=== PATIENT | male | born 1935 | race Asian ===

== ENCOUNTER 2018-08-17 12:44 | Inpatient (IN) | payer OTHER, BC, MEDICARE ==
[2018-08-17 13:33] LABS: ADD MAN DIFF? NO
[2018-08-17 13:39] LABS: WHITE BLOOD COUNT 15.7 10^3/ul (4.8-10.8)
[2018-08-17 13:39] LABS: BASOPHILS % 0.1 % (0.0-2.0); EOSINOPHILS # 0.1 10^3/ul (0.0-0.5); EOSINOPHILS % 0.3 % (0.0-7.0); HEMATOCRIT 38.8 % (42.0-52.0); HEMOGLOBIN 12.1 g/dl (14.0-18.0); LYMPHOCYTES # 0.7 10^3/ul (0.8-2.9); LYMPHOCYTES % 4.3 % (15.0-51.0); MEAN CORPUSCULAR HEMOGLOBIN 27.9 pg (29.0-33.0); MEAN CORPUSCULAR HGB CONC 31.2 g/dl (32.0-37.0); MEAN CORPUSCULAR VOLUME 89.4 fl (82.0-101.0); MEAN PLATELET VOLUME 10.6 fl (7.4-10.4); MONOCYTE # 0.7 10^3/ul (0.3-0.9); MONOCYTES % 4.5 % (0.0-11.0); NEUTROPHIL # 14.1 10^3/ul (1.6-7.5); PLATELET COUNT 227 10^3/UL (140-415); RED BLOOD COUNT 4.34 10^6/ul (4.70-6.10); RED CELL DISTRIBUTION WIDTH 16.1 % (11.5-14.5)
[2018-08-17 13:59] LABS: ALANINE AMINOTRANSFERASE 8 IU/L (13-69); ALBUMIN 4.3 g/dl (3.3-4.9); ALBUMIN/GLOBULIN RATIO 1.07; ALKALINE PHOSPHATASE 82 IU/L (42-121); ANION GAP 8 (5-13); ASPARTATE AMINO TRANSFERASE 28 IU/L (15-46); BILIRUBIN,INDIRECT 0.4 mg/dl (0-1.1); BILIRUBIN,TOTAL 0.4 mg/dl (0.2-1.3); BLOOD UREA NITROGEN 58 mg/dl (7-20); CALCIUM 9.3 mg/dl (8.4-10.2); CARBON DIOXIDE 27 mmol/L (21-31); CHLORIDE 105 mmol/L (97-110); CREATININE 6.25 mg/dl (0.61-1.24); GLUCOSE 109 mg/dl (70-220); SODIUM 140 mmol/L (135-144); TOTAL PROTEIN 8.3 g/dl (6.1-8.1)
[2018-08-17 14:05] LABS: INR 0.95; PROTIME 12.8 Sec (11.9-14.9)
[2018-08-17] MEDS: SOD CHLORIDE 0.9% 500 ML IV (14:05)
[2018-08-17] MEDS: CEFEPIME 2GM/50 ML (PMX) 50 ML IVPB (14:05)
[2018-08-17 14:06] LABS: PARTIAL THROMBOPLASTIN TIME 29.7 Sec (23.0-35.0)
[2018-08-17 14:10] LABS: TROPONIN-I < 0.012 ng/ml (0.000-0.120)
[2018-08-17 14:46] LABS: ADD UMIC YES; UR ASCORBIC ACID NEGATIVE (NEGATIVE); UR BACTERIA FEW /HPF (NONE SEEN); UR BILIRUBIN (Dip) NEGATIVE (NEGATIVE); UR BLOOD (Dip) 1+ mg/dL (NEGATIVE); UR CLARITY CLOUDY (CLEAR); UR COLOR YELLOW (YELLOW); UR GLUCOSE (Dip) NEGATIVE (NEGATIVE); UR KETONES (Dip) NEGATIVE (NEGATIVE); UR LEUKOCYTE ESTERASE (Dip) 3+ Leu/ul (NEGATIVE); UR NITRITE (Dip) NEGATIVE (NEGATIVE); UR RBC 5 /HPF (0-5); UR TOTAL PROTEIN (Dip) 2+ mg/dl (NEGATIVE); UR UROBILINOGEN (Dip) NEGATIVE (NEGATIVE); UR WBC 125 /HPF (0-5)
[2018-08-17] MEDS: NA POLYST SULFON 15 GM/60 ML BTL PO (14:55)
[2018-08-17 15:02] LABS: POTASSIUM 5.3 mmol/L (3.5-5.1)
[2018-08-17] MEDS ORDERED: SODIUM CHLORIDE 0.9% 1L BAG IV (16:00)
[2018-08-17] MEDS ORDERED: ALBUMIN HUMAN 25% 100 ML IV (16:00)
[2018-08-17] MEDS: TAMSULOSIN (SR) 0.4 MG CAP PO (21:53)
[2018-08-17] MEDS: ATORVASTATIN 40 MG TAB PO (21:53)
[2018-08-17 23:10] LABS: LACTIC ACID 3.4 mmol/L (0.5-2.0)
[2018-08-18] MEDS: ACETAMINOPHEN 325 MG TAB PO (00:11)
[2018-08-18] MEDS: PANTOPRAZOLE (EC) 40 MG TAB PO ×2 (06:12→17:46)
[2018-08-18 07:03] LABS: ADD MAN DIFF? NO
[2018-08-18 07:13] LABS: WHITE BLOOD COUNT 17.6 10^3/ul (4.8-10.8)
[2018-08-18 07:13] LABS: BASOPHIL # 0.1 10^3/ul (0.0-0.1); BASOPHILS % 0.3 % (0.0-2.0); EOSINOPHILS # 0.2 10^3/ul (0.0-0.5); EOSINOPHILS % 0.9 % (0.0-7.0); HEMATOCRIT 34.4 % (42.0-52.0); HEMOGLOBIN 10.9 g/dl (14.0-18.0); LYMPHOCYTES # 1.9 10^3/ul (0.8-2.9); LYMPHOCYTES % 10.6 % (15.0-51.0); MEAN CORPUSCULAR HEMOGLOBIN 28.2 pg (29.0-33.0); MEAN CORPUSCULAR HGB CONC 31.7 g/dl (32.0-37.0); MEAN CORPUSCULAR VOLUME 89.1 fl (82.0-101.0); MEAN PLATELET VOLUME 11.1 fl (7.4-10.4); MONOCYTE # 1.3 10^3/ul (0.3-0.9); MONOCYTES % 7.2 % (0.0-11.0); NEUTROPHIL # 14.1 10^3/ul (1.6-7.5); NEUTROPHILS % 80.3 % (39.0-77.0); PLATELET COUNT 190 10^3/UL (140-415); RED BLOOD COUNT 3.86 10^6/ul (4.70-6.10); RED CELL DISTRIBUTION WIDTH 16.6 % (11.5-14.5)
[2018-08-18 07:40] LABS: ANION GAP 12 (5-13); BLOOD UREA NITROGEN 62 mg/dl (7-20); CALCIUM 8.8 mg/dl (8.4-10.2); CARBON DIOXIDE 21 mmol/L (21-31); CHLORIDE 109 mmol/L (97-110); CREATININE 6.95 mg/dl (0.61-1.24); GLUCOSE 91 mg/dl (70-220); POTASSIUM 4.3 mmol/L (3.5-5.1); SODIUM 142 mmol/L (135-144)
[2018-08-18] MEDS: AMLODIPINE 10 MG TAB PO (08:01)
[2018-08-18] MEDS ORDERED: CLOPIDOGREL 75 MG TAB PO (09:00)
[2018-08-18 09:54] LABS: HEPATITIS B SURFACE ANTIGEN NEGATIVE (NEGATIVE)
[2018-08-18 10:13] LABS: HEPATITIS B SURFACE ANTIBODY POSITIVE (NEGATIVE)
[2018-08-18 10:48] LABS: LACTIC ACID 0.7 mmol/L (0.5-2.0)
[2018-08-18] MEDS: HEPARIN 1000 UNITS/ML 10 ML INJ CATHETER (11:22)
[2018-08-18] MEDS: CEFEPIME 1GM/50 ML (PMX) 50 ML IVPB (13:34)
[2018-08-18] MEDS: ATORVASTATIN 40 MG TAB PO (20:20)
[2018-08-18] MEDS: TAMSULOSIN (SR) 0.4 MG CAP PO (20:20)
[2018-08-19] MEDS: PANTOPRAZOLE (EC) 40 MG TAB PO ×2 (05:05→17:13)
[2018-08-19 06:15] LABS: ADD MAN DIFF? NO
[2018-08-19 06:27] LABS: BASOPHILS % 0.3 % (0.0-2.0); EOSINOPHILS # 0.1 10^3/ul (0.0-0.5); EOSINOPHILS % 1.6 % (0.0-7.0); HEMOGLOBIN 11.3 g/dl (14.0-18.0); LYMPHOCYTES # 1.1 10^3/ul (0.8-2.9); LYMPHOCYTES % 12.4 % (15.0-51.0); MEAN CORPUSCULAR HEMOGLOBIN 28.3 pg (29.0-33.0); MEAN CORPUSCULAR HGB CONC 32.3 g/dl (32.0-37.0); MEAN CORPUSCULAR VOLUME 87.5 fl (82.0-101.0); MONOCYTE # 0.6 10^3/ul (0.3-0.9); MONOCYTES % 7.2 % (0.0-11.0); NEUTROPHILS % 78.2 % (39.0-77.0); PLATELET COUNT 202 10^3/UL (140-415); RED CELL DISTRIBUTION WIDTH 16.4 % (11.5-14.5)
[2018-08-19 06:27] LABS: WHITE BLOOD COUNT 8.9 10^3/ul (4.8-10.8)
[2018-08-19 07:18] LABS: LACTIC ACID 0.9 mmol/L (0.5-2.0)
[2018-08-19 08:07] LABS: IRON 22 ug/dl (35-150)
[2018-08-19 08:13] LABS: RETICULOCYTE COUNT # 0.058 X10^6 (0.020-0.110); RETICULOCYTE COUNT % 1.4 % (0.5-1.5)
[2018-08-19 08:17] LABS: % IRON SATURATION 14 % SAT (22-52); TOTAL IRON BINDING CAPACITY 152 ug/dl (241-421)
[2018-08-19] MEDS: AMLODIPINE 10 MG TAB PO (08:43)
[2018-08-19 09:14] LABS: FOLATE 5.4 ng/ml (2.8-20.0)
[2018-08-19] MEDS: CEFTRIAXONE 1 GM/50 ML (PMX) 50 ML IVPB (15:32)
[2018-08-19] MEDS: ATORVASTATIN 40 MG TAB PO (21:43)
[2018-08-19] MEDS: TAMSULOSIN (SR) 0.4 MG CAP PO (21:43)
[2018-08-20 05:39] LABS: ADD MAN DIFF? NO
[2018-08-20 05:49] LABS: BASOPHILS % 0.8 % (0.0-2.0); EOSINOPHILS # 0.3 10^3/ul (0.0-0.5); EOSINOPHILS % 5.4 % (0.0-7.0); HEMATOCRIT 34.4 % (42.0-52.0); HEMOGLOBIN 10.9 g/dl (14.0-18.0); LYMPHOCYTES # 1.3 10^3/ul (0.8-2.9); LYMPHOCYTES % 24.4 % (15.0-51.0); MEAN CORPUSCULAR HEMOGLOBIN 27.6 pg (29.0-33.0); MEAN CORPUSCULAR HGB CONC 31.7 g/dl (32.0-37.0); MEAN CORPUSCULAR VOLUME 87.1 fl (82.0-101.0); MEAN PLATELET VOLUME 10.7 fl (7.4-10.4); MONOCYTE # 0.7 10^3/ul (0.3-0.9); MONOCYTES % 12.8 % (0.0-11.0); NEUTROPHIL # 2.9 10^3/ul (1.6-7.5); NEUTROPHILS % 56.2 % (39.0-77.0); PLATELET COUNT 218 10^3/UL (140-415); RED BLOOD COUNT 3.95 10^6/ul (4.70-6.10); RED CELL DISTRIBUTION WIDTH 15.5 % (11.5-14.5)
[2018-08-20 05:49] LABS: WHITE BLOOD COUNT 5.2 10^3/ul (4.8-10.8)
[2018-08-20 06:05] LABS: ANION GAP 14 (5-13); BLOOD UREA NITROGEN 54 mg/dl (7-20); CALCIUM 8.9 mg/dl (8.4-10.2); CARBON DIOXIDE 24 mmol/L (21-31); CHLORIDE 101 mmol/L (97-110); CREATININE 6.78 mg/dl (0.61-1.24); GLUCOSE 95 mg/dl (70-220); POTASSIUM 3.6 mmol/L (3.5-5.1); SODIUM 139 mmol/L (135-144)
[2018-08-20] MEDS: PANTOPRAZOLE (EC) 40 MG TAB PO ×2 (06:07→18:05)
[2018-08-20] MEDS: AMLODIPINE 10 MG TAB PO (09:00)
[2018-08-20] MEDS: CEFTRIAXONE 1 GM/50 ML (PMX) 50 ML IVPB (13:18)
[2018-08-20] MEDS: HEPARIN 1000 UNITS/ML 10 ML INJ CATHETER (18:55)
[2018-08-20] MEDS: DOCUSATE SODIUM 100 MG CAP PO (21:31)
[2018-08-20] MEDS: ATORVASTATIN 40 MG TAB PO (21:31)
[2018-08-20] MEDS: TAMSULOSIN (SR) 0.4 MG CAP PO (21:31)
[2018-08-21] MEDS: PANTOPRAZOLE (EC) 40 MG TAB PO ×2 (06:09→17:47)
[2018-08-21] MEDS: DOCUSATE SODIUM 100 MG CAP PO ×2 (08:05→20:36)
[2018-08-21] MEDS: AMLODIPINE 10 MG TAB PO (08:05)
[2018-08-21 11:38] LABS: ANION GAP 13 (5-13); BLOOD UREA NITROGEN 39 mg/dl (7-20); CALCIUM 9.1 mg/dl (8.4-10.2); CARBON DIOXIDE 26 mmol/L (21-31); CHLORIDE 102 mmol/L (97-110); CREATININE 5.95 mg/dl (0.61-1.24); GLUCOSE 100 mg/dl (70-220); MAGNESIUM 2.3 mg/dl (1.7-2.5); POTASSIUM 4.4 mmol/L (3.5-5.1); SODIUM 141 mmol/L (135-144)
[2018-08-21 13:36] LABS: OCCULT BLOOD STOOL NEGATIVE (NEGATIVE)
[2018-08-21] MEDS: CEFTRIAXONE 1 GM/50 ML (PMX) 50 ML IVPB (13:44)
[2018-08-21 17:59] LABS: TROPONIN-I < 0.012 ng/ml (0.000-0.120)
[2018-08-21] MEDS: TAMSULOSIN (SR) 0.4 MG CAP PO (20:36)
[2018-08-21] MEDS: ATORVASTATIN 40 MG TAB PO (20:36)
[2018-08-22 01:59] LABS: TROPONIN-I < 0.012 ng/ml (0.000-0.120)
[2018-08-22] MEDS: PANTOPRAZOLE (EC) 40 MG TAB PO (05:55)
[2018-08-22 06:27] LABS: ADD MAN DIFF? NO
[2018-08-22 06:32] LABS: WHITE BLOOD COUNT 5.9 10^3/ul (4.8-10.8)
[2018-08-22 06:32] LABS: BASOPHIL # 0.1 10^3/ul (0.0-0.1); EOSINOPHILS # 0.4 10^3/ul (0.0-0.5); EOSINOPHILS % 5.9 % (0.0-7.0); HEMATOCRIT 35.5 % (42.0-52.0); HEMOGLOBIN 11.1 g/dl (14.0-18.0); LYMPHOCYTES # 1.9 10^3/ul (0.8-2.9); LYMPHOCYTES % 31.9 % (15.0-51.0); MEAN CORPUSCULAR HEMOGLOBIN 27.5 pg (29.0-33.0); MEAN CORPUSCULAR HGB CONC 31.3 g/dl (32.0-37.0); MEAN CORPUSCULAR VOLUME 87.9 fl (82.0-101.0); MEAN PLATELET VOLUME 10.3 fl (7.4-10.4); MONOCYTE # 0.5 10^3/ul (0.3-0.9); MONOCYTES % 8.7 % (0.0-11.0); NEUTROPHILS % 51.3 % (39.0-77.0); PLATELET COUNT 253 10^3/UL (140-415); RED BLOOD COUNT 4.04 10^6/ul (4.70-6.10); RED CELL DISTRIBUTION WIDTH 15.5 % (11.5-14.5)
[2018-08-22 06:51] LABS: CHOL/HDL RATIO 3.1 RATIO; HDL CHOLESTEROL 38 mg/dl (31-75); LDL CHOLESTEROL,CALCULATED 61 mg/dl; TRIGLYCERIDES 109 mg/dl (0-149)
[2018-08-22 06:51] LABS: CHOLESTEROL 121 mg/dl (100-200)
[2018-08-22 07:01] LABS: ANION GAP 14 (5-13); BLOOD UREA NITROGEN 55 mg/dl (7-20); CALCIUM 9.1 mg/dl (8.4-10.2); CARBON DIOXIDE 23 mmol/L (21-31); CHLORIDE 102 mmol/L (97-110); CREATININE 7.27 mg/dl (0.61-1.24); GLUCOSE 95 mg/dl (70-220); MAGNESIUM 2.2 mg/dl (1.7-2.5); POTASSIUM 4.5 mmol/L (3.5-5.1); SODIUM 139 mmol/L (135-144)
[2018-08-22] MEDS: AMLODIPINE 10 MG TAB PO (08:44)
[2018-08-22] MEDS: DOCUSATE SODIUM 100 MG CAP PO (08:45)
[2018-08-22] MEDS: CEFTRIAXONE 1 GM/50 ML (PMX) 50 ML IVPB (13:12)
[2018-08-22] MEDS: HEPARIN 1000 UNITS/ML 10 ML INJ CATHETER (14:42)
[2018-08-22] MEDS: ACETAMINOPHEN 325 MG TAB PO (15:55)
== END 2018-08-22 17:00 | disposition home or self-care (01) | DRG 871 ==
LOC: 6WM 18:39 → E/R 12:44 → 6WM 14:36
PROVIDERS: Internal Medicine
PROC: 5A1D70Z Performance of Urinary Filtration, Intermittent, Less than 6 Hours Per Day (ICD-10-PCS; principal; 2018-08-18)
DX: A41.9 Sepsis, unspecified organism (principal); N18.6 End stage renal disease; N39.0 Urinary tract infection, site not specified; I12.0 Hypertensive chronic kidney disease with stage 5 chronic kidney disease or end stage renal disease; B19.10 Unspecified viral hepatitis B without hepatic coma; K92.1 Melena; I49.1 Atrial premature depolarization; G93.40 Encephalopathy, unspecified; N13.8 Other obstructive and reflux uropathy; Z87.440 Personal history of urinary (tract) infections; Z99.2 Dependence on renal dialysis; E87.5 Hyperkalemia; E78.5 Hyperlipidemia, unspecified; D64.9 Anemia, unspecified; D50.9 Iron deficiency anemia, unspecified; D51.9 Vitamin B12 deficiency anemia, unspecified; B96.20 Unspecified Escherichia coli [E. coli] as the cause of diseases classified elsewhere; N40.1 Benign prostatic hyperplasia with lower urinary tract symptoms; Z87.891 Personal history of nicotine dependence; Z79.02 Long term (current) use of antithrombotics/antiplatelets; Z79.82 Long term (current) use of aspirin
CPT/HCPCS: 36415; 71045; 80048; 80053; 80061; 81001; 82270; 82607; 82728; 82746; 83540; 83605; 83735; 84132; 84153; 84154; 84443; 84484; 85025; 85045; 85610; 85730; 86706; 87040-91; 87081; 87086; 87340; 87400; 90935; 93005; 93306; 96374; 97161; 99285-25